=== PATIENT | male | born 1985 | race Caucasian/White ===

== ENCOUNTER 2016-04-25 09:58 | Emergency (ER) | payer OTHER ==
[2016-04-25 10:14] VITALS: BP 131/80; PULSE 78; TEMP 97.4; BMI 27.3
[2016-04-25] MEDS ORDERED: NAPROXEN 500 MG TABLET (FP) PO ONE (10:43)
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
[2016-04-25] MEDS ORDERED: NAPROXEN 500 MG TABLET (FP) ONE (11:01)
== END 2016-04-25 11:10 | disposition home or self-care (01) ==
LOC: JERFT 09:58 → JER 09:58
DX: S40.012A Contusion of left shoulder, initial encounter (principal); S40.011A Contusion of right shoulder, initial encounter; X50.0XXA Overexertion from strenuous movement or load, initial encounter; X00.8XXA Other exposure to uncontrolled fire in building or structure, initial encounter; Y93.89 Activity, other specified; Y92.89 Other specified places as the place of occurrence of the external cause; Y99.0 Civilian activity done for income or pay
CPT/HCPCS: 99282-25